=== PATIENT | female | born 1950 | race Two or more races ===

== ENCOUNTER 2024-05-16 06:56 | Day surgery (SDC) | payer OTHER ==
[2024-05-16] VITALS (9 sets, daily range): BP systolic 147–194; BP diastolic 71–109; PULSE 66–94; RESP 13–83; TEMP 97.7; O2SAT 96–99
[~2024-05-16] VITALS: Ht 157.5 cm; Wt 96.6 kg
[~2024-05-16 06:56] MED LIST: ASPI-543 PO; ATOR20TA50 PO; FOLI-119 PO; HYDR-4491 PO; HYDR25TA5 PO
[2024-05-16] MEDS ORDERED: ANGIOMAX 250 MG VIAL IV ONE (08:42)
[2024-05-16] MEDS ORDERED: HEPARIN SODIUM (PORCINE) 5000 UNITS/ML 1ML VIAL ONE (08:42)
[2024-05-16] MEDS ORDERED: MIDAZOLAM HCL 2MG/2ML 2ml VIAL (1mg/ml) ONE (08:43)
[2024-05-16] MEDS ORDERED: SODIUM CHL 0.9% 0 ML ONE (08:43)
[2024-05-16] MEDS ORDERED: fentaNYL CITRATE 100 MCG/2 ML VL ONE (08:43)
[2024-05-16] MEDS ORDERED: LIDOCAINE 2%HCL (LOCAL ANESTH.) INJ 20ML MDV ONE (08:43)
[2024-05-16] MEDS ORDERED: VERAPAMIL 2.5MG/ML INJ 2ML VIAL IV ONE (08:43)
[2024-05-16] MEDS ORDERED: IODIXANOL 320MG/ML 100ML BTL IV ONE (09:09)
[2024-05-16] MEDS: ONDANSETRON HCL 4 MG/2 ML VIAL ONE (09:40)
[2024-05-16] MEDS: METOCLOPRAMIDE HCL 5MG/ml INJ 2ml VIAL ONE (11:40)
== END 2024-05-16 13:01 | disposition home or self-care (01) ==
LOC: CATH 06:56
PROVIDERS: ATTEND Internal Medicine
DX: R94.39 Abnormal result of other cardiovascular function study (principal); I25.10 Atherosclerotic heart disease of native coronary artery without angina pectoris; R07.9 Chest pain, unspecified
CPT/HCPCS: 93005; 93458; C1894; J1644; J2250; J2405; J2765; J3010; J7030; Q9967; 99152

== ENCOUNTER 2025-01-04 19:55 | Inpatient (IN) | payer OTHER ==
[~2025-01-04] VITALS: Ht 157.5 cm; Wt 97.0 kg
--- NOTE | 2025-01-04 21:05 | ED.PDOC ---
SOB-HPI HPI Comments 74 y/o F, with PMHX of HTN presents to the ED for CC of shortness of breath. Patient states, that she is coming from urgent care where she was relayed to the ED for a further evaluation due to fluid being present in her right lung. Patient endorses, that she has had similar symptoms in the past in her left lung. Patient comments on, seeing PCP prior to urgent care visit; patient informed of possible costochondritis. Patient denies chest pain, nausea, v omiting, or diarrhea. No other symptoms or modifying factors present at this time. Chief Complaint: Shortness of Breath Time Seen by MD: 20:45 Reviewed notes: Nurses Notes, Medications, Allergies Information Source: Patient Mode of Arrival: Ambulatory Severity: Moderate Timing: Days Duration: Since onset Context: At Rest PE Risk Factors: None History of: None Prehospital treatment: None Modifying Factors: Nothing Past Medical History PAST MEDICAL HISTORY: DM, HTN Surgical History: Hysterectomy Surgical History (Other): left eye MANUAL QA TESTER History: Denies all MANUAL QA TESTER Hx Family History Family History: Unknown Social History Smoker: Non-Smoker Alcohol: Denies ETOH Use Drugs: Denies Drug Use Lives In: Home Constitutional: denies: chills, diaphoresis, fatigue, fever, malaise, sweats, weakness, others EENTM: denies: blurred vision, double vision, ear bleeding, ear discharge, ear drainage, ear pain, ear ringing, eye pain, eye redness, hearing loss, mouth pain, mouth swelling, nasal discharge, nose bleeding, nose congestion, nose pain, photophobia, tearing, throat pain, throat swelling, voice changes, others Respiratory: reports: shortness of breath; denies: cough, hemoptysis, orthop roslyn, SOB at rest, SOB with excertion, stridor, wheezing, others Cardiovascular: denies: chest pain, dizzy spells, diaphoresis, Dyspnea on exertion, edema, irregular heart beat, left arm pain, lightheadedness, palpitations, PND, syncope, others Gastrointestinal: denies: abdomen distended, abdominal pain, blood streaked bowels, constipated, diarrhea, dysphagia, difficulty swallowing, hematemesis, melena, nausea, poor appetite, poor fluid intake, rectal bleeding, rectal pain, vomiting, others Genitourinary: denies: abnormal vagina bleeding, burning, dyspareunia, dysuria, flank pain, frequency, hematuria, incontinence, pain, , vagina discharge, urgency, others Neurological: denies: dizziness, fainting, headache, left sided numbness, left sided weakness, numbness, paresthesia, pre-existing deficit, right sided numbness, right sided weakness, seizure, speech problems, tingling, tremors, weakness, others Musculoskeletal: denies: back pain, gout, joint pain, joint swelling, muscle pain, muscle stiffness, neck pain, others Integumetry: denies: bruises, change in color, change in hair/nails, dryness, laceration, lesions, lumps, rash, wounds, others Allergic/Immunocompromised: denies: Difficulty Healing, Frequent Infections, Hives, Itching, others Hematologic/Lymphatic: denies: anemia, blood clots, easy bleeding, easy bruising, swollen glands, others Endocrine: denies: excessive hunger, excessive sweating, excessive thirst, excessive urination, flushing, intolerance to cold, intolerance to heat, unexplained weight gain, unexplained weight loss, others Psychiatric: denies: anxiety, bipolar disorder, depression, hopeless, panic disorder, schizophrenia, sleepless, suicidal, others All Other Systems: Reviewed and Negative Physical Exam General Appearance: Moderate Distress HEENT: Normal ENT Inspection, Pharynx Normal, TMs Normal Neck: Full Range of Motion, Non-Tender, Normal, Normal Inspection Respiratory: Chest Non-Tender, Decreased Breath Sounds, Lungs Clear, No Accessory Muscle Use, Respiratory Distress Cardiovascular: No Edema, No JVD, No Murmur, No Gallop, Normal Peripheral Pulses, Regular Rate/Rhythm Breast Exam: Deferred Gastrointestinal: No Organomegaly, Non Tender, No Pulsatile Mass, Normal Bowel Sounds, Soft Genitalia: Deferred Pelvic: Deferred Rectal: Deferred Extremities: No calf tenderness, Normal capillary refill, Normal inspection, Normal range of motion, Non-tender, No pedal edema Musculoskeletal : Apperance: Normal Neurologic: Alert, 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 Was a procedure done?: No Differential Dx Differential Diagnosis: Asthma, Bronchitis, CHF, Pneumonia, Sinusitis, Pharyngitis, URI X-Ray, Labs, Meds, VS Vital Signs Date Time Temp Pulse Resp B/P (MAP) Pulse Ox O2 Delivery O2 Flow Rate FiO2 01/04/25 21:59 97 01/04/25 20:22 97 01/04/25 20:12 20 95 Room Air* 0 21 01/04/25 20:12 98.7 108 20 137/72 (93) 95 Lab Test 01/04/25 21:00 Range/Units White Blood Count 14.0 H 4.4-10.8 10^3/uL Red Blood Count 4.38 4.0-5.20 10^6/uL Hemoglobin 12.8 12.2-16.2 g/dL Hematocrit 38.6 36.0-46.0 % Mean Corpuscular Volume 88.1 80.0-100.0 fL Mean Corpuscular Hemoglobin 29.3 28.0-32.0 pg Mean Corpuscular Hemoglobin Concent 33.3 32.0-36.0 g/dL Red Cell Distribution Width 14.9 H 11.8-14.3 % Platelet Count 270 140-450 10^3/uL Mean Platelet Volume 7.9 6.9-10.8 fL Neutrophils (%) (Auto) 95.5 H 37.0-80.0 % Lymphocytes (%) (Auto) 3.6 L 10.0-50.0 % Monocytes (%) (Auto) 0.7 0.0-12.0 % Eosinophils (%) (Auto) 0.0 0.0-7.0 % Basophils (%) (Auto) 0.2 0.0-2.0 % Neutrophils # (Auto) 13.4 H 1.6-8.6 10 ^3/uL Lymphocytes # (Auto) 0.5 0.4-5.4 10 ^3/uL Monocytes # (Auto) 0.1 0-1.3 10 ^3/uL Eosinophils # (Auto) 0 0-0.8 10 ^3/uL Basophils # (Auto) 0 0-0.2 10 ^3/uL Nucleated Red Blood Cells 0.0 % Sodium Level 135 L 136-145 mmol/L Potassium Level 4.0 3.5-5.1 mmol/L Chloride Level 102 98-107 mmol/L Carbon Dioxide Level 24 20-31 mmol/L Anion Gap 9 5-15 Blood Urea Nitrogen 11 9-23 mg/dL Creatinine 1.00 0.550-1.02 mg/dL Glomerular Filtration Rate Calc 59 >90 mL/min BUN/Creatinine Ratio 11.0 10.0-20.0 Serum Glucose 159 H 74-106 mg/dL Calcium Level 9.7 8.7-10.4 mg/dL Troponin I High Sensitivity 3588 *H </=34 ng/L B-Type Natriuretic Peptide 139.86 0-100 pg/mL CXR : FINDINGS: Median sternotomy changes. Prominence of the cardiomediastinal silhouette. Central vascular redistribution and interstitial opacities. Blunting of the right costophrenic angle. No definite pneumothorax. IMPRESSION: Pulmonary vascular congestion/interstitial edema with right pleural effusion. ATED BY: JESSEE JOHNSON MD DICTATED DATE/TIME: 01/04/252125 SIGNED BY: JESSEE JOHNSON MD SIGNED DATE/TIME: 01/04/252125 CC: The patient was started on heparin IV piggyback We did review the EKG again and there was no sign of any ST changes Based on the findings on the chest x-ray the patient was started on Lasix 40 mg IV push The patient was troponin level came back elevated at 3588 The patient's [place] an [place] [address] The chemistry panel is within normal limits We are contacting the clam grader for consultation for possible non STEMI The patient will also be started on a heparin drip. We have discussed the findings with the patient and she is in agreement with the management. Images Reviewed?: Images reviewed and evaluated by me Time of 1ST Reevaluation: 20:25 Reevaluation 1ST: Unchanged Patient Education/Counseling: Diagnosis, Treatment, Prognosis Family Education/Counseling: No Family Present Departure 1 Departure Time of Disposition: 22:02 Impression: Primary Impression: Acute on chronic diastolic heart failure Additional Impression: Non-STEMI (non-ST elevated myocardial infarction) Disposition: ADMITTED INPATIENT Admit to: [facility] Condition: Fair Critical Care Note Critical Care Time?: Yes (45 min-critical care time only) Stability Stability form required: Yes Unstable for transfer: ICU, CCU, PCU, [facility] (Intensive VS monitoring), ED Physician Assesment (Clinical assesment) Heart Score Heart Score: Heart Score Response (Comments) Value History Moderate Suspicious 1 EKG Repolarization Disturb 1 Age >65 2 Risk Factors >3 or Hx ASHD 2 Troponin >3 x's Normal limit 2 Total 8 I personally scribed for NATTY GALE MD ([email or web address]) on 01/04/25 at 21:05. Electronically submitted by Karina Hilario ([email or web address]). I personally scribed for NATTY GALE MD ([email or web address]) on 01/04/25 at 21:48. Electronically submitted by Karina Hilario ([email or web address]). NATTY GALE MD Jan 04, 2025 21:05
[2025-01-04 21:12] LABS: Basophils # (auto) 0 10 ^3/uL (0-0.2); Basophils % (auto) 0.2 % (0.0-2.0); Eosinophils # (auto) 0 10 ^3/uL (0-0.8); Hematocrit 38.6 % (36.0-46.0); Hemoglobin 12.8 g/dL (12.2-16.2); Lymphocytes # (auto) 0.5 10 ^3/uL (0.4-5.4); Lymphocytes % (auto) 3.6 % (10.0-50.0); Mean Corpuscular Hemoglobin 29.3 pg (28.0-32.0); Mean Corpuscular Hgb Conc. 33.3 g/dL (32.0-36.0); Mean Corpuscular Volume 88.1 fL (80.0-100.0); Monocytes # (auto) 0.1 10 ^3/uL (0-1.3); Monocytes % (auto) 0.7 % (0.0-12.0); Neutrophils # (auto) 13.4 10 ^3/uL (1.6-8.6); Neutrophils % (auto) 95.5 % (37.0-80.0); Platelet Count (auto) 270 10^3/uL (140-450); Red Blood Cells 4.38 10^6/uL (4.0-5.20); Red Cell Distribution Width 14.9 % (11.8-14.3)
--- NOTE | 2025-01-04 21:29 | DVH ---
EXAMINATIONS: Chest x-ray 1 view CLINICAL HISTORY: sob COMPARISON: None FINDINGS: Median sternotomy changes. Prominence of the cardiomediastinal silhouette. Central vascular redistri bution and interstitial opacities. Blunting of the right costophrenic angle. No definite pneumothorax . IMPRESSION: Pulmonary vascular congestion/interstitial edema with right pleural effusion.
[2025-01-04 21:47] LABS: Chloride 102 mmol/L (98-107)
[2025-01-04 21:48] LABS: Anion Gap 9 (5-15); Carbon Dioxide 24 mmol/L (20-31)
[2025-01-04 21:49] LABS: Calcium 9.7 mg/dL (8.7-10.4)
[2025-01-04 21:50] LABS: Sodium 135 mmol/L (136-145)
[2025-01-04 21:53] LABS: Blood Urea Nitrogen 11 mg/dL (9-23)
[2025-01-04 21:55] LABS: Glucose 159 mg/dL (74-106)
[2025-01-04 22:10] VITALS: O2SAT 96
[2025-01-04] MEDS ORDERED: NITROGLYCERIN 0.4 MG SL TAB SL PRN (22:15)
[2025-01-04 22:34] LABS: INR 1.08 (0.9-1.15); Prothrombin Time 11.4 sec (9.3-11.8)
[2025-01-04 23:09] LABS: LDL Cholesterol 64 mg/dL (< 100); Triglycerides 53 mg/dL (< 150)
[2025-01-04 23:10] LABS: Cholesterol 137 mg/dL (< 200); HDL Cholesterol 56 mg/dL (40-59)
[2025-01-04] MEDS ORDERED: HEPARIN DRIP/D5W 100UNITS/ML 250 ML IV SCH (23:30)
[2025-01-04] MEDS: ASPirin 81 mg TAB PO ONE (23:40)
[2025-01-04] MEDS: ASPirin 81 mg TAB PO SCH (23:40)
[2025-01-05] VITALS (12 sets, daily range): BP systolic 119–136; BP diastolic 69–79; PULSE 68–111; RESP 14–20; TEMP 97.5–97.9; O2SAT 94–99
[2025-01-05] MEDS: FUROSEMIDE 40 MG/4 ML VIAL IV ONE (00:22)
[2025-01-05] MEDS: HEPARIN SODIUM (PORCINE) 5000 UNITS/ML 1ML VIAL IV ONE ×2 (00:26→09:29)
[2025-01-05] MEDS: HEPARIN DRIP/D5W 100UNITS/ML 250 ML IV SCH ×2 (00:46→09:00)
--- NOTE | 2025-01-05 01:44 | DVHHP2 ---
Admitting Diagnosis: NSTEMI History of Present Illness History Source: Patient Exam Limitations: No limitations HPI Mrs. Farzana Evans is a 74 year old female, with a past medical history of hypertension, DM, CABG x3 07/2024, hysterectomy who presents with a chief complaint of shortness of breath. Patient states, that she was sent from urgent care for a further evaluation due to fluid being present in her right lung. Patient endorses, that she has had similar symptoms in the past in her left lung. Patient comments on, seeing PCP prior to urgent care visit. Patient CXR resulted: Pulmonary vascular congestion/interstitial edema with right pleural effusion. Patient was found to have a troponin level of 3,588. Patient reports left shoulder pain radiating to left shoulder blade onset x 1 day. Patient denies chest pain, dyspnea, palpitations, dizziness, abdominal pain. Patient admitted for further evaluation and treatment. Home Meds Active Scripts Carvedilol (COREG) 3.125 Mg Tab, 3.125 MG OR BID for 120 Days, #240 TAB Prov:ARSLAN CARBAJAL MD 01/06/25 Clopidogrel Bisulfate (CLOPIDOGREL) 75 Mg Tab, 75 MG PO DAILY for 90 Days, #90 TAB Prov:ARSLAN CARBAJAL MD 01/06/25 Atorvastatin Calcium (ATORVASTATIN CALCIUM) 20 Mg Tab, 40 MG PO HS for 90 Days, #180 TAB Prov:ARSLAN CARBAJAL MD 01/06/25 Aspirin (Aspir-Low) 81 Mg Tab, 81 MG PO DAILY for PREVENTATIVE, #90 MG Prov:ARSLAN CARBAJAL MD 01/06/25 Reported Medications Hctz (Hydrochlorothiazide) 25 Mg Tab, 12.5 MG PO for HTN/EDEMA, TAB 05/13/24 Atorvastatin Calcium (ATORVASTATIN CALCIUM) 20 Mg Tab, 1 TAB PO DAILY for HIGH CHOLESTEROL, #30 TAB 5 Refills 05/13/24 Folic Acid (Folic Acid) 1 Mg Tab, 1 MG PO DAILY, MG 05/13/24 Hydroxychloroquine Sulfate (PLAQUENIL) 200 Mg Tab, 1 TAB PO BID for RHEUMATOID ARTHRITIS, #180 TAB 3 Refills 05/13/24 Past Medical History Cardiac: HTN Endocrine: NIDDM Past Surgical History: Hysterctomy H&P Exam Vital Signs Vital Signs Date Time Temp Pulse Resp B/P (MAP) Pulse Ox O2 Delivery O2 Flow Rate FiO2 01/05/25 00:55 98.6 120 19 113/65 (81) 95 98.6 01/04/25 20:12 Room Air* 0 21 Labs/Xrays Labs Test 01/05/25 00:15 01/04/25 22:28 01/04/25 21:00 Range/Units Troponin I High Sensitivity 4819 *H </=34 ng/L Lactic Acid Level 1.7 0.4-2.0 mmol/L Triglycerides Level 53 < 150 mg/dL Cholesterol Level 137 < 200 mg/dL LDL Cholesterol 64 < 100 mg/dL HDL Cholesterol 56 40-59 mg/dL White Blood Count 14.0 H 4.4-10.8 10^3/uL Red Blood Count 4.38 4.0-5.20 10^6/uL Hemoglobin 12.8 12.2-16.2 g/dL Hematocrit 38.6 36.0-46.0 % Mean Corpuscular Volume 88.1 80.0-100.0 fL Mean Corpuscular Hemoglobin 29.3 28.0-32.0 pg Mean Corpuscular Hemoglobin Concent 33.3 32.0-36.0 g/dL Red Cell Distribution Width 14.9 H 11.8-14.3 % Platelet Count 270 140-450 10^3/uL Mean Platelet Volume 7.9 6.9-10.8 fL Neutrophils (%) (Auto) 95.5 H 37.0-80.0 % Lymphocytes (%) (Auto) 3.6 L 10.0-50.0 % Monocytes (%) (Auto) 0.7 0.0-12.0 % Eosinophils (%) (Auto) 0.0 0.0-7.0 % Basophils (%) (Auto) 0.2 0.0-2.0 % Neutrophils # (Auto) 13.4 H 1.6-8.6 10 ^3/uL Lymphocytes # (Auto) 0.5 0.4-5.4 10 ^3/uL Monocytes # (Auto) 0.1 0-1.3 10 ^3/uL Eosinophils # (Auto) 0 0-0.8 10 ^3/uL Basophils # (Auto) 0 0-0.2 10 ^3/uL Nucleated Red Blood Cells 0.0 % Prothrombin Time 11.4 9.3-11.8 sec Prothrombin Time INR 1.08 0.9-1.15 Activated Partial Thromboplast Time 30.3 24.5-34.5 SEC Sodium Level 135 L 136-145 mmol/L Potassium Level 4.0 3.5-5.1 mmol/L Chloride Level 102 98-107 mmol/L Carbon Dioxide Level 24 20-31 mmol/L Anion Gap 9 5-15 Blood Urea Nitrogen 11 9-23 mg/dL Creatinine 1.00 0.550-1.02 mg/dL Glomerular Filtration Rate Calc 59 >90 mL/min BUN/Creatinine Ratio 11.0 10.0-20.0 Serum Glucose 159 H 74-106 mg/dL Calcium Level 9.7 8.7-10.4 mg/dL B-Type Natriuretic Peptide 139.86 0-100 pg/mL Assessment/Plan Problem List: (1) Non-STEMI (non-ST elevated myocardial infarction) (2) Acute on chronic diastolic heart failure Plan This is a 74 yo female with known history of hypertension, DM2, hysterectomy who presents with shortness of breath sent from for further evaluation of pu lmonary vascular congestion. Patient was found to have 1. NSTEMI 2. Pleural Effusion 3. CHF Plan Patient will be admitted to [facility] Cardiology consultation, 2D echocardiogram, serial troponin levels, ASA, Statin, IV diuresis Lasix Heparin drip per pharmacy ACS protocol, explained to patient Analgesic as needed Lipid Panel NPO after midnight Discussed all above with patient who verbalizes agreement and understanding of care plan. All questions were answered. Discussed assessment and care plan with supervising MD. Plan discussed with: Patient, Other Code Visit Code Visit Total Time (mins): 45 Additional Comments Additional Comments Additional Comments 74-year-old female with a known history of CAD status post three-vessel CABG presented to the hospital with shortness breath found to have 1. NSTEMI status post PCI to RCA with three stents 2. CAD status post three-vessel CABG 3. Leukocytosis likely reactive 4. Right-sided pleural effusion -pulmonary consultation for right thoracentesis, repeat labs, continue dual antiplatelet therapy as well as statin, add low-dose of beta rhiannon. KIT GAMBOA Jan 05, 2025 01:44 ARSLAN CARBAJAL MD Jan 06, 2025 16:27
[2025-01-05 04:37] LABS: Urine Bacteria MOD /hpf (None Seen); Urine Blood Negative /uL (Negative); Urine Clarity Clear (Clear); Urine Color Light-Yellow (Yellow); Urine Protein, UAD Negative (Negative); Urine Specific Gravity 1.006 (1.001-1.035); Urine Squamous Epithelial Cell FEW /hpf (<5); Urine Urobilinogen Normal (Negative); Urine WBC 3 /HPF (0-5); Urine pH 5.5 (5.0-9.0)
[2025-01-05 07:14] LABS: Basophils # (auto) 0 10 ^3/uL (0-0.2); Eosinophils # (auto) 0 10 ^3/uL (0-0.8); Hematocrit 35.3 % (36.0-46.0); Hemoglobin 12.4 g/dL (12.2-16.2); Lymphocytes # (auto) 0.8 10 ^3/uL (0.4-5.4); Mean Corpuscular Hemoglobin 30.6 pg (28.0-32.0); Mean Corpuscular Hgb Conc. 35.2 g/dL (32.0-36.0); Monocytes # (auto) 0.1 10 ^3/uL (0-1.3); Platelet Count (auto) 257 10^3/uL (140-450); Red Blood Cells 4.06 10^6/uL (4.0-5.20); White Blood Cell 10.9 10^3/uL (4.4-10.8)
[2025-01-05 07:15] LABS: INR 1.08 (0.9-1.15); Prothrombin Time 11.4 sec (9.3-11.8)
[2025-01-05 07:18] LABS: Anion Gap 11 (5-15); Carbon Dioxide 23 mmol/L (20-31); Chloride 104 mmol/L (98-107); Potassium 3.8 mmol/L (3.5-5.1); Sodium 138 mmol/L (136-145)
[2025-01-05 07:24] LABS: BUN/Creatinine Ratio 14.6 (10.0-20.0); Blood Urea Nitrogen 14 mg/dL (9-23); Glucose 129 mg/dL (74-106)
[2025-01-05 07:25] LABS: Magnesium 2.2 mg/dL (1.6-2.6)
--- NOTE | 2025-01-05 08:33 | ECG ---
[facility] Test Date: 2025-01-04 Test Time: 22:28:28 Pat Name: SOLITARIO GUTIERREZ Department: ED Room: 0275T Gender: F Support Technician: AMINA : 1950 Requested By: NATTY GALE Order Number: [id number] Reading MD: Emile Layc Measurements Intervals [place] Rate: 86 P: 50 HI: 149 QRS: 52 QRSD: 92 T: 120 QT: 421 QTc: 504 Interpretive Statements Sinus rhythm Probable left atrial enlargement Abnormal inferior Q waves Abnrm T, consider ischemia, anterolateral lds Prolonged QT interval Electronically Signed On 01-07-2025 19:04:57 PDT by Emile Lacy Please click the below link to view image of tracing.
[2025-01-05] MEDS: IODIXANOL 320MG/ML 100ML BTL IV ONE ×3 (10:46→12:51)
[2025-01-05] MEDS: MIDAZOLAM HCL 2MG/2ML 2ml VIAL (1mg/ml) ONE (11:25)
[2025-01-05] MEDS: LIDOCAINE 2%HCL (LOCAL ANESTH.) INJ 20ML MDV ONE (11:25)
[2025-01-05] MEDS: fentaNYL CITRATE 100 MCG/2 ML VL ONE (11:25)
--- NOTE | 2025-01-05 11:34 | DVHINCON2 ---
Date Seen: Jan 05, 2025 Referring Physician MD Omar Reason for Consultation NSTEMI History of Present Illness This is a 74-year-old female patient who presents to emergency room with chief complaint of left shoulder and back pain. The patient initially went to see her primary care physician with complaints of left shoulder and left back pain. She reports that she was sent to urgent care from there for further evaluation. She reports that a chest x-ray was done and she was told that she had "fluid in her lungs" and was told to come to the emergency room. Upon emergency room arrival, a twelve lead electrocardiogram reveals normal sinus rhythm with nonspecific ST segment changes to anteroseptal leads. Initial troponin level of 3588ng/L with significant up-trend and latest value at 5565ng/L. At the time of assessment, the patient states she began having chest pressure. She describes it as unprovoked, intermittent, pressure-like in nature, substernal, and nonradiating. She denies any associated symptoms at this time. Significant past medical history includes severe coronary artery disease status post triple-vessel CABG in 07/2024, hypertension, dyslipidemia, and obesity. The patient reports that she sees mine wirer in the outpatient setting. Past Medical History Past medical history reviewed. No other significant than mentioned above. Past Surgical History Triple-vessel bypass CABG 07/2024 Hysterectomy Family History Family history reviewed. Social History Denies the use of tobacco, alcohol or illicit drugs. Allergies: Coded Allergies: Morphine (Verified Allergy, Unknown, UNKNOWN, 05/13/24) Uncoded Allergies: NONE (Allergy, Unknown, 05/13/24) Home Meds Reported Medications Aspirin (Aspir-Low) 81 Mg Tab, 81 MG PO DAILY for PREVENTATIVE, MG 05/13/24 Hctz (Hydrochlorothiazide) 25 Mg Tab, 12.5 MG PO for HTN/EDEMA, TAB 05/13/24 Atorvastatin Calcium (ATORVASTATIN CALCIUM) 20 Mg Tab, 1 TAB PO DAILY for HIGH CHOLESTEROL, #30 TAB 5 Refills 05/13/24 Folic Acid (Folic Acid) 1 Mg Tab, 1 MG PO DAILY, MG 05/13/24 Hydroxychloroquine Sulfate (PLAQUENIL) 200 Mg Tab, 1 TAB PO BID for RHEUMATOID ARTHRITIS, #180 TAB 3 Refills 05/13/24 Home Meds Home medications reviewed. Current Medications Current Medications Medications (Trade) Dose Ordered Sig/Jamal Route PRN Reason Start Time Stop Time Status Last Admin Heparin Sodium/ Dextrose 250 ml @ 110 mls/hr Q2H17M IV 01/04/25 23:30 01/05/25 00:38 DC Nitroglycerin (Ntrostat Sublingual) 0.4 mg Q5MINP PRN SL FOR CHEST PAIN 01/04/25 22:15 Ondansetron HCl (Zofran) 4 mg Q6HPRN PRN IV NAUSEA / VOMITING 01/04/25 22:15 Aspirin 81 mg DAILY PO 01/04/25 22:15 01/04/25 23:40 Atorvastatin Calcium (Lipitor) 40 mg HS PO 01/05/25 22:00 Acetaminophen/ Hydrocodone Bitart ([place] 5/325MG Tab) 1 tab Q6HPRN PRN PO PAIN SCALE 1 THRU 6 01/04/25 22:15 Acetaminophen (Tylenol Tablet) 650 mg Q6HPRN PRN PO PAIN SCALE 1-3 OR TEMP>100.4 01/04/25 22:15 Pantoprazole Sodium (Protonix) 40 mg DAILY IV 01/05/25 10:00 Furosemide (Lasix Injection) 40 mg BID IV 01/05/25 10:00 Heparin Sodium/ Dextrose 250 ml @ 10 mls/hr Q24H IV 01/05/25 00:45 01/05/25 08:50 DC 01/05/25 00:46 Heparin Sodium/ Dextrose 250 ml @ 13 mls/hr [id number] IV 01/05/25 09:00 01/05/25 09:00 Review of Systems Constitutional: No symptom reported Ears, Nose, & Throat: No symptom reported Eyes: No symptom reported Neurological: No symptoms reported Pulmonary/Respiratory: No symptoms reported Cardiovascular: Chest pressure Gastrointestinal: No symptom reported Genitourinary: No symptom reported Musculoskeletal: Left shoulder and left upper back pain Skin: No symptom reported Psychiatric: No symptom reported Endocrine: No symptom reported Hematologic/Lymphatic: No symptom reported Vital Signs Vital Signs Date Time Temp Pulse Resp B/P (MAP) Pulse Ox O2 Delivery O2 Flow Rate FiO2 01/05/25 11:00 97.9 127 26 141/74 (96) 98 97.9 01/05/25 04:00 Room Air* 0 21 Physical Exam General Appearance: Cooperative. Well-developed. Well-nourished. No acute distress. Pulmonary/Respiratory: Diminished bilateral lower lobes Cardiovascular/Chest: Regular rate and rhythm. Peripheral Pulses: 2+ Radial (R). 2+ Radial (L). 2+ Pedal (R). 2+ Pedal (L) Abdominal Exam: Normal bowel sounds. Ankle Exam: Negative ankle edema Lower extremities: Negative lower extremity edema Neuro/Mental Status: A/OX4, coherent. Thoughts/Psych: Normal thought pattern. Appropriate mood and affect. Good judgment and insight. Appearance: No acute distress. Skin Exam: Normal inspection. Normal color. Warm and dry. Labs/Diagnostic Data Labs Test 01/05/25 06:10 01/05/25 04:07 01/04/25 22:28 01/04/25 21:00 Range/Units White Blood Count 10.9 H 4.4-10.8 10^3/uL Red Blood Count 4.06 4.0-5.20 10^6/uL Hemoglobin 12.4 12.2-16.2 g/dL Hematocrit 35.3 L 36.0-46.0 % Mean Corpuscular Volume 87.0 80.0-100.0 fL Mean Corpuscular Hemoglobin 30.6 28.0-32.0 pg Mean Corpuscular Hemoglobin Concent 35.2 32.0-36.0 g/dL Red Cell Distribution Width 15.0 H 11.8-14.3 % Platelet Count 257 140-450 10^3/uL Mean Platelet Volume 8.3 6.9-10.8 fL Neutrophils (%) (Auto) 92.0 H 37.0-80.0 % Lymphocytes (%) (Auto) 7.0 L 10.0-50.0 % Monocytes (%) (Auto) 1.0 0.0-12.0 % Eosinophils (%) (Auto) 0.0 0.0-7.0 % Basophils (%) (Auto) 0.0 0.0-2.0 % Neutrophils # (Auto) 10.0 H 1.6-8.6 10 ^3/uL Lymphocytes # (Auto) 0.8 0.4-5.4 10 ^3/uL Monocytes # (Auto) 0.1 0-1.3 10 ^3/uL Eosinophils # (Auto) 0 0-0.8 10 ^3/uL Basophils # (Auto) 0 0-0.2 10 ^3/uL Nucleated Red Blood Cells 0.0 % Prothrombin Time 11.4 9.3-11.8 sec Prothrombin Time INR 1.08 0.9-1.15 Activated Partial Thromboplast Time 28.0 24.5-34.5 SEC Sodium Level 138 136-145 mmol/L Potassium Level 3.8 3.5-5.1 mmol/L Chloride Level 104 98-107 mmol/L Carbon Dioxide Level 23 20-31 mmol/L Anion Gap 11 5-15 Blood Urea Nitrogen 14 9-23 mg/dL Creatinine 0.96 0.550-1.02 mg/dL Glomerular Filtration Rate Calc 62 >90 mL/min BUN/Creatinine Ratio 14.6 10.0-20.0 Serum Glucose 129 H 74-106 mg/dL Calcium Level 10.0 8.7-10.4 mg/dL Magnesium Level 2.2 1.6-2.6 mg/dL Troponin I High Sensitivity 5565 *H </=34 ng/L Urine Color Light-yellow Yellow Urine Clarity Clear Clear Urine pH 5.5 5.0-9.0 Urine Specific [place] 1.006 1.001-1.035 Urine Protein Negative Negative Urine Ketones Negative Negative Urine Blood Negative Negative /uL Urine Nitrite Negative Negative Urine Bilirubin Negative Negative Urine Urobilinogen Normal Negative mg/dL Urine Leukocyte Esterase Negative Negative /uL Urine RBC 1 0 - 4 /hpf Urine Microscopic WBC 3 0-5 /HPF Urine Squamous Epithelial Cells Few <5 /hpf Urine Bacteria Mod H None Seen /hpf Urine Glucose Normal Normal mg/dL Lactic Acid Level 1.7 0.4-2.0 mmol/L Triglycerides Level 53 < 150 mg/dL Cholesterol Level 137 < 200 mg/dL LDL Cholesterol 64 < 100 mg/dL HDL Cholesterol 56 40-59 mg/dL B-Type Natriuretic Peptide 139.86 0-100 pg/mL Assessment NSTEMI, rule out progressive coronary artery disease Severe coronary artery disease status post triple-vessel CABG (on ASA) Rule out structural heart disease Hypertension Dyslipidemia Obesity Plan/Recommendation We will continue with the following plan/recommendations (Dr. Lacy): * Transthoracic echocardiogram to evaluate cardiac function * Chest pain protocol * ARTURO score: 6 points (high) * HEART score: 9 points (high score) * Continue heparin drip per pharmacy protocol * Single antiplatelet therapy and lipid-lowering agent * Close Cardiac surveillance * Coronary angiogram Case discussed with . Given the patient's clinical presentation, elevated troponin level, and twelve lead electrocardiogram changes, we will recommend for the patient undergo a coronary angiogram with left heart catheterization. The procedure was discussed with the patient in full detail including risks and benefits. Risks include but are not limited to bleeding, contrast-induced nephropathy, stroke, and even . The patient understands and is agreeable to undergo the procedure. We will schedule the patient at soonest availability on 01/05/2025. Critical care time spent: 44 minutes This medical document was created using an electronic medical record system with voice recognition software and computerized dictation system. Although this document has been carefully reviewed, there might still be some phonetic and typographical errors. Occasional wrong-word or ``sound-alike substitutions may have occurred due to the inherent limitations of voice recognition software. These areas are purely typographical due to imperfections of the software programs and do not reflect any compromise in the patient's medical care. Please read the chart carefully and recognize, using context, where these substitutions have occurred. Plan discussed with: Patient NYHA Physical activity limitations: NA Date of Service: Jan 05, 2025 Billing Provider: OANH LACY Sr., MD Cardiology Common Codes: NOT BILLABLE KELLEE HAYDEN Jan 05, 2025 11:34
[2025-01-05] MEDS: ONDANSETRON HCL 4 MG/2 ML VIAL ONE ×2 (11:40→12:38)
[2025-01-05] MEDS: SODIUM CHL 0.9% 50 ML ONE (12:10)
[2025-01-05] MEDS: ANGIOMAX 250 MG VIAL IV ONE (12:10)
[2025-01-05] MEDS: DOPamine 1600MCG/ML D5W 250 ML IV ONE (12:17)
[2025-01-05] MEDS: PHENYLEPHRINE HCL 10 MG/ML VL ONE (12:25)
[2025-01-05] MEDS: EPINEPHrine HCL 1 MG/10 ML SYRG ONE (12:46)
[2025-01-05] MEDS: ATROPINE SULF 1 MG/10ml SYR ONE (12:46)
[2025-01-05] MEDS: CLOPIDOGREL BISULFATE 75 MG TAB ONE (13:00)
[2025-01-05] MEDS: ASPirin 325 MG TAB ONE (13:00)
--- NOTE | 2025-01-05 13:35 | ECG ---
[facility] Test Date: 2025-01-04 Test Time: 20:22:35 Pat Name: SOLITARIO GUTIERREZ Department: ER Room: [facility]5T Gender: F [employer] Assistant: WAGNER : 1950 Requested By: NATTY GALE Order Number: [id number] Reading MD: Emile Lacy Measurements Intervals [place] Rate: 97 P: 62 IA: 140 QRS: 74 QRSD: 97 T: 121 QT: 370 QTc: 470 Interpretive Statements Sinus rhythm Low voltage, precordial leads Nonspecific T abnrm, anterolateral leads Electronically Signed On 01-07-2025 19:03:38 PDT by Emile Lacy Please click the below link to view image of tracing.
[2025-01-05] MEDS: ONDANSETRON HCL 4 MG/2 ML VIAL IV PRN (14:44)
[2025-01-05] MEDS ORDERED: DOPamine 1600MCG/ML D5W 250 ML IV SCH (15:00)
--- NOTE | 2025-01-05 17:24 | DVHOP2 ---
Operative Report - 2 Report Details Date: 01/05/25 Preop Diagnosis: CLINICAL PROFILE: 74-year-old lady with a history of underlying coronary artery disease status post three-vessel bypass several months ago. Developed progressive chest pain and shortness of breath. Cardiac evaluation was requested for cardiac catheterization. Patient had abnormal troponins with cardiomyopathy. Recurrent chest pain. Probable recurrence of CAD and/or pro gression noted as a possibility. Patient was taken to the cardiac catheterization laboratory. Postop Diagnosis: Diminished ejection fraction. EF of about 35%. Stenotic graft to the marginal. RCA stenosis. Patent saphenous graft to the PDA. Patent CARMEN to the LAD. Surgeon: Emile Lacy MD Anesthesiologist: Conscious sedation Anesthesia: Mac, Local ( Fentanyl and Versed were instituted. I personally monitored the patient throughout the procedure.) Implant: Medtronic drug-eluting stents Consent: The patient was informed of the risks and benefits of the procedure. These include but are not limited to complications of anesthesia, postoperative infection, incomplete relief of symptoms, recurrence of symptoms, damage to blood vessels, nerves and tendons, deep venous thrombosis, pulmonary embolism and possible need for repeat surgery in the future. Complications: No complications Estimated Blood Loss: 5 cc Findings: CAD with occluded PDA. Occluded LAD. Patent left internal mammary artery to the LAD. Stenotic saphenous graft to the marginal. Patent saphenous graft to the PDA. RCA stenosis. Decreased ejection fraction. Elevated left ventricular end-diastolic pressures. Indications for Surgery: Chest pain. Non-STEMI. Name of Procedure Performed Bilateral cine coronary angiography. Left ventriculography. Visualization of saphenous venous grafts and left internal mammary artery. Fractional flow reserve evaluation of the RCA. PTCA and stenting of the saphenous graft to the marginal. PTCA and stenting of the RCA. Procedure Details Procedure Details: Prior local anesthesia with 2% lidocaine to the right groin and full informed consent obtained the patient was prepped and draped in usual fashion followed by placement of a six [place] sheath into the femoral artery through which six [place] Steven catheters were used to cannulate both right and left coronary ostia and a six [place] pigtail catheter was used for ventriculography. Hemodynamics: Aortic blood pressure was 110/70. End-diastolic pressure was 20. There was no gradient across the aortic valve on pullback. Coronary anatomy. The RCA is a large vessel it has a proximal 80% stenosis. The mid and distal segments are free of significant disease however the posterolateral branches are rather small. Diffusely diseased. The PDA is 100% occluded proximally. Left main is large and normal. Left anterior descending is diffusely disease and it is occluded proximally. It gives off a large septal customs opener verifier packer. The circumflex is a large vessel it is normal in its proximal and mid section however the 1st marginal branch is occluded. Saphenous graft to the PDA is patent with minimal flow into the proximal PDA. There is no flow into the posterolateral and/or RCA. Good distal flow from the anastomosis. The saphenous venous graft to the marginal is patent however there is a long narrowing in the proximal saphenous graft that produces dampening of the pressure waveforms when cannulated with a catheter. The distal anastomotic site has a 99% subtotal stenosis. Left internal mammary artery to the LAD is patent with good flow from the anastomosis forward. Minimal retrograde filling of the proximal LAD. Ventriculography in the SAMUEL projection shows an EF of about 35%. Fractional flow reserve evaluation was performed of the RCA. FFR revealed a value of 0.75 Indicating severe stenosis of the proximal RCA. We obtained a SA L1 guide and placed it into the origin of the saphenous graft. We then dilated with a 2 mm balloon at the anastomotic site distally into the marginal. There was notable improvement. We then addressed the proximal saphenous graft with a two 5 x 22 mm stent. This improved the flow however the distal segment was hazy. We opted to stent with a 225 x 12 at approximately eight atmospheres. There was excellent antegrade flow without thrombus formation or dissection. We then addressed the RCA. We placed the ID guide into the RCA ostium and placed a Specter wire distally followed by pre dilating with a two five balloon. We then placed a 3-0 by 8 mm Medtronic ivan drug-eluting stent. This was deployed at approximately 10 atmospheres. We then retracted the balloon and expanded to approximately 15 atmospheres. There was notable improvement of flow. Impression: Successful PTCA and stenting of the RCA and saphenous graft to the marginal. Patent saphenous grafts to the marginal and to the PDA. Stenosis of the RCA as mentioned. Patent left internal mammary artery to the LAD. Decreased left ventricular ejection fraction. Elevated left ventricular end- diastolic pressure at rest. Recommendations continue with medical therapy. Dual antiplatelet therapy afterload reduction. Entresto to be instituted. Condition Guarded Disposition at Hospital Date of Service: Jan 05, 2025 Billing Provider: EMILE LACY Sr., MD Cardiology Common Codes: [id number] INP/OBS CARE (High) Cardiology Procedure Codes: [id number] VESSEL W/I VASC FAM, 52398 -PTCA W/STENT PLACEMENT, 11512-KJTV ADD CORONARY BRANCH, 41332-TOPY FOR STEMI W/STENT, 57556-NRVJ ADD COR ART/BRNCH/GRFT, 65482-VYAC HEART CATH W/INTRA INJ, 66374-R/L HEART CATH W/BYPASS GFT ( Visualization of saphenous venous grafts and left internal mammary artery. PTCA and stenting of the RCA and saphenous graft to t he marginal. Fractional flow reserve evaluation of the RCA. Ultrasound and fluoroscopic guidance to obtain access to the right femoral artery.) EMILE LACY Sr., MD Jan 05, 2025 17:24
--- NOTE | 2025-01-05 17:44 | DVHSR ---
APPROVED REPORT EXAM: Two-dimensional and M-mode echocardiogram with Doppler and color Doppler. Blood Pressure: 108/47 mmHg INDICATION NSTEMI, CHF RISK FACTORS Height: 62, Weight: 212 DIMENSIONS LVDd4.6 (3.8-5.7cm)LA (2D)3.8 (1.9-4.0cm)Aortic Root3.4 (2.0-3.7cm) LVDs3.1 (2.5-4.0cm)LA (MM) (1.9-4.0cm)Aortic Cusp Exc1.7 (1.5-2.0cm) EF (%) 62.0 (55-70%)Rt. Atrium (1.9-4.0cm)Asc. Aorta cm IVSd1.2 (0.7-1.1cm)RV (D) (1.8-2.4cm) PWd1.2 (0.7-1.1cm) Mitral Valve MitralMitral Stenosis E wave0.71m/sMV Mean GR.mmHg A wave1.12m/sMV Peak GR.102mmHg E/A ratio0.62D MVAcm2 DECEL [id number] 1/2 Nsrq91td IVRTmsDop MVA4.26cm2 Aortic Valve Aortic ValveAortic Stenosis V11.02m/Chelsea Mean GR.3mmHg V21.10m/[place]sea Peak GR.5mmHg LVOT Diameter1.7 (1.8-2.4cm)Doppler AVA2.10cm2 Pulmonic Valve V20.79m/s Tricuspid Valve TR Velocity2.47m/s [id number] Other Information Technically limited study due to body habitus and patient position. Conclusion Technically good study. Sinus rhythm. Left atrial enlargement concentric LVH. Mild mitral annular calcification. Mild aortic sclerosis. Left ventricular function is diminished. EF is about 35% with global hypokinesis. Normal right vent ricular function. Mild TR. No pericardial effusion masses or vegetations.
[2025-01-05] MEDS: PANTOPRAZOLE 40 MG/10 ML VIAL INJ IV SCH (20:49)
[2025-01-05] MEDS: ACETAMINOPHEN 325 MG TAB PO PRN (20:51)
[2025-01-05] MEDS: ATORVASTATIN 20 MG TAB PO SCH (21:00)
[2025-01-05] MEDS: FUROSEMIDE 40 MG/4 ML VIAL IV SCH (21:00)
[2025-01-06] VITALS (8 sets, daily range): BP systolic 112–150; BP diastolic 63–85; PULSE 84–110; RESP 18–20; TEMP 97.5–99; O2SAT 93–99
[2025-01-06] MEDS: HYDROcodone-ACET 5/325MG TAB PO PRN (05:34)
[2025-01-06 09:16] LABS: Chloride 104 mmol/L (98-107); Sodium 138 mmol/L (136-145)
[2025-01-06 09:17] LABS: Anion Gap 9 (5-15); Carbon Dioxide 25 mmol/L (20-31)
[2025-01-06 09:18] LABS: Calcium 9.5 mg/dL (8.7-10.4)
[2025-01-06 09:33] LABS: BUN/Creatinine Ratio 17.5 (10.0-20.0)
[2025-01-06 09:49] LABS: Glucose 107 mg/dL (74-106); Potassium 4.6 mmol/L (3.5-5.1)
[2025-01-06 09:50] LABS: Blood Urea Nitrogen 17 mg/dL (9-23)
[2025-01-06] MEDS: CLOPIDOGREL BISULFATE 75 MG TAB PO SCH (10:00)
[2025-01-06] MEDS ORDERED: IOHEXOL 350 MG/ML 100ML IJ ONE (10:35)
[2025-01-06 11:34] LABS: Hematocrit 38.6 % (36.0-46.0); Hemoglobin 12.5 g/dL (12.2-16.2); Mean Corpuscular Hemoglobin 28.9 pg (28.0-32.0); Mean Corpuscular Hgb Conc. 32.5 g/dL (32.0-36.0); Mean Corpuscular Volume 89.1 fL (80.0-100.0); Platelet Count (auto) 268 10^3/uL (140-450); Red Blood Cells 4.33 10^6/uL (4.0-5.20); Red Cell Distribution Width 15.2 % (11.8-14.3)
[2025-01-06 11:49] LABS: Band Neutrophils % (manual) 0; Basophils % (manual) 0 (0.0-2.0); Blast Cells 0; Eosinophils % (manual) 0 (0-7); Metamyelocytes % 0; Myelocytes % 0; Promyelocytes % 0; Reactive Lymphocytes 0
[2025-01-06 12:22] LABS: Lymphocytes % (manual) 5 (10.0-50.0); Monocytes % (manual) 4 (0-12); Platelet Estimate Adequate
--- NOTE | 2025-01-06 12:28 | DVH ---
CTA CHEST INDICATION: back and should pain TECHNIQUE: Multidetector CTA of the chest was performed of the chest with 100 cc of intravenous contr ast. PULMONARY ANGIOGRAPHY PROTOCOL was utilized using a bolus-tracking technique centered on the [place] n pulmonary artery. Axial, coronal and sagittal multiplanar and MIP reformats were performed. Radiation Dose Information: CT Dose: CTDI volume is 25 mGy. Dose-length product is 964 mGy*cm The dose indicators for CT are the volume Computed Tomography (CT) Dose Index (CTDIvol) and the Dose Length Product (DLP), and are measured in units of mGy and mGy-cm, respectively. These indicators are not patient dose, but values generated from the CT scanner acquisition factors. The report includes radiation exposure data for exposures received during this examination. Comparison: None Findings: Pulmonary artery: There is no evidence of a pulmonary arterial filling defect to suggest pulmonary e mbolism. The main pulmonary artery demonstrates normal caliber. Lungs/Pleura: There is a moderate size right pleural effusion which tracks into the minor and major fissure. There is associated atelectasis in the right lower lobe. There is scarring versus atelectasi s in the lingula and left lower lobe. There is no focal lung consolidation. Is no evidence of pneumot horax. The central airways are clear. Heart/Vascular Structures: Postsurgical changes related to CABG. There is cardiomegaly. There is no pericardial effusion. The thoracic aorta demonstrates normal caliber. Lymph Nodes: There is no evidence of thoracic lymphadenopathy. Musculoskeletal: No acute osseous abnormality. Upper abdomen: There is a small hiatal hernia. Remaining visualized upper abdominal structures appear within normal limits. IMPRESSION: 1. There is no evidence of a pulmonary arterial filling defect to suggest pulmonary embolism. 2. Moderate size right pleural effusion with associated atelectasis in the right lower lobe. There is scarring versus atelectasis in the lingula and left lower lobe.3. Cardiomegaly. HS:Y
[2025-01-06] MEDS ORDERED: ATOR20TA50 PO (16:22)
[2025-01-06] MEDS ORDERED: CARV-214 OR (16:22)
[2025-01-06] MEDS ORDERED: CLOP75TA70 PO (16:22)
[2025-01-06] MEDS ORDERED: ASPI-543 PO (16:22)
--- NOTE | 2025-01-06 16:29 | DVHPN2 ---
Subjective Overnight events noted. Patient does have right-sided pleural effusion. Patient is status post PCI to RCA with three stents. Reviewed: Care Plan Changes from previous H/P or p: No Changes Objective Vitals Vital Signs Date Time Temp Pulse Resp B/P (MAP) Pulse Ox O2 Delivery O2 Flow Rate FiO2 01/06/25 13:00 99.0 108 18 142/82 (102) 93 99.0 01/05/25 19:56 Nasal Cannula* 2 28 Intake/Output Intake and Output 01/06/25 07:00 Intake Total 450 ml Balance 450 ml Intake Oral 450 ml # Voids 3 Exam HEENT pupils are reactive Neck is supple CV is S1-S2 regular rate and rhythm Respiratory diminished breath sounds right lung base GI positive bowel sounds Extremity no edema SAP SECURITY ARCHITECT no motor deficit Medications Current Medications Medications Dose Ordered Sig/Jamal Route Start Time Stop Time Status Last Admin Dose Admin Nitroglycerin 0.4 mg Q5MINP PRN SL 01/04/25 22:15 Ondansetron HCl 4 mg Q6HPRN PRN IV 01/04/25 22:15 01/06/25 10:09 4 MG Aspirin 81 mg DAILY PO 01/04/25 22:15 01/04/25 23:40 81 MG Atorvastatin Calcium 40 mg HS PO 01/05/25 22:00 01/05/25 21:00 40 MG Acetaminophen/ Hydrocodone Bitart 1 tab Q6HPRN PRN PO 01/04/25 22:15 01/06/25 05:34 1 TAB Acetaminophen 650 mg Q6HPRN PRN PO 01/04/25 22:15 01/05/25 20:51 650 MG Pantoprazole Sodium 40 mg DAILY IV 01/05/25 10:00 01/06/25 10:09 40 MG Furosemide 40 mg BID IV 01/05/25 10:00 01/06/25 10:09 40 MG Clopidogrel Bisulfate 75 mg DAILY PO 01/06/25 10:00 Laboratory Results Laboratory Tests 01/06/25 08:57 01/06/25 10:45 Chemistry Test 01/06/25 08:57 Calcium Level 9.5 mg/dL (8.7-10.4) Urinalysis Test 01/05/25 04:07 Urine Color Light-yellow (Yellow) Urine Clarity Clear (Clear) Urine pH 5.5 (5.0-9.0) Urine Specific [place] 1.006 (1.001-1.035) Urine Protein Negative (Negative) Urine Ketones Negative (Negative) Urine Blood Negative /uL (Negative) Urine Nitrite Negative (Negative) Urine Bilirubin Negative (Negative) Urine Urobilinogen Normal mg/dL (Negative) Urine Leukocyte Esterase Negative /uL (Negative) Urine RBC 1 /hpf (0 - 4) Urine Microscopic WBC 3 /HPF (0-5) Urine Squamous Epithelial Cells Few /hpf (<5) Urine Bacteria Mod /hpf (None Seen) H Urine Glucose Normal mg/dL (Normal) Assessment/Plan Assessment/Plan 74-year-old female with a known history of CAD status post three-vessel CABG presented to the hospital with shortness breath found to have 1. NSTEMI status post PCI to RCA with three stents 2. CAD status post three-vessel CABG 3. Leukocytosis likely reactive 4. Right-sided pleural effusion -continue dual antiplatelet therapy, continue statin, add Entresto, add low dose of beta rhiannon -pulmonary consultation for right-sided thoracentesis Plan discussed with: Patient, Spouse My Orders Orders - ARSLAN CARBAJAL MD Procedure Category Date Status Time *Consult CONS 01/06/25 Transmitted / 16:20 Date of Service: Jan 06, 2025 Billing Provider: ARSLAN CARBAJAL MD Common Visit Codes: NOT BILLABLE ARSLAN CARBAJAL MD Jan 06, 2025 16:28
--- NOTE | 2025-01-06 17:24 | DVHPN2 ---
Consult Progress Note Subjective Other Systems: Patient complaining of nausea, and upper back pain at time of assessment. Patient in sinus tachycardia at time of assessment Objective vital signs Vital Sign Date Time Temp Pulse Resp B/P (MAP) Pulse Ox O2 Delivery O2 Flow Rate FiO2 01/06/25 16:40 98.0 104 18 139/79 (99) 98 98.0 01/06/25 07:30 Nasal Cannula* 2 28 Total Intake and Output 01/05/25 01/05/25 01/06/25 15:00 23:00 07:00 Intake Total 450 ml Balance 450 ml medications Current Medications Medications Dose Ordered Sig/Jamal Route Start Time Stop Time Status Last Admin Dose Admin Nitroglycerin 0.4 mg Q5MINP PRN SL 01/04/25 22:15 Ondansetron HCl 4 mg Q6HPRN PRN IV 01/04/25 22:15 01/06/25 10:09 4 MG Aspirin 81 mg DAILY PO 01/04/25 22:15 01/04/25 23:40 81 MG Atorvastatin Calcium 40 mg HS PO 01/05/25 22:00 01/05/25 21:00 40 MG Acetaminophen/ Hydrocodone Bitart 1 tab Q6HPRN PRN PO 01/04/25 22:15 01/06/25 05:34 1 TAB Acetaminophen 650 mg Q6HPRN PRN PO 01/04/25 22:15 01/05/25 20:51 650 MG Pantoprazole Sodium 40 mg DAILY IV 01/05/25 10:00 01/06/25 10:09 40 MG Furosemide 40 mg BID IV 01/05/25 10:00 01/06/25 10:09 40 MG Clopidogrel Bisulfate 75 mg DAILY PO 01/06/25 10:00 Carvedilol 3.125 mg Q12HR PO 01/06/25 22:00 Sacubitril/ Valsartan 1 tab BID PO 01/06/25 22:00 Examination: GENERAL:Normal, LUNGS:Normal, CVS:Normal, NEURO:Normal laboratory and microbiology Laboratory Tests 01/06/25 10:45 01/06/25 08:57 Test 01/06/25 08:57 Range/Units Serum Glucose 107 H 74-106 mg/dL Problem List/Assessment/Plan Problem List/Assessment/Plan NSTEMI, status post PTCA x3 CLARA Severe coronary artery disease status post triple-vessel CABG (on ASA) Rule out structural heart disease Hypertension Dyslipidemia Obesity Plan/Recommendation (Dr. Lacy): Case discussed with Dr. Lacy. A transthoracic echocardiogram revealed an EF of 35% with global hypokinesis. The patient underwent a coronary angiogram with left heart catheterization on 01/05/2025 in which successful PTCA and stenting x 3 CLARA. We will recommend to continue with guideline directed medical therapy for CHF, dual antiplatelet therapy, and lipid-lowering agent. Consider MRA (spironolactone) with stable potassium. At the time of initial assessment the patient was complaining of nausea as well as mid upper back pain. A twelve lead electrocardiogram was done and revealed sinus tachycardia with Q-waves in inferior leads without any significant ST segment changes. A STAT CT angio was ordered to rule out dissection. Report did not mention anything about dissection, spoke with on-site radiologist Dr. Peralta who looked at images and confirmed that there is no dissection. Continue with medical management. Thank you for allowing us to care for this patient. Please call with any questions or concerns. This medical document was created using an electronic medical record system with voice recognition software and computerized dictation system. Although this document has been carefully reviewed, there might still be some phonetic and typographical errors. Occasional wrong-word or ``sound-alike substitutions may have occurred due to the inherent limitations of voice recognition software. These areas are purely typographical due to imperfections of the software programs and do not reflect any compromise in the patient's medical care. Please read the chart carefully and recognize, using context, where these substitutions have occurred. Plan discussed with: Patient Date of Service: Jan 06, 2025 Billing Provider: KELLEE HAYDEN Common Visit Codes: [id number] INP/OBS CARE(HIGH) KELLEE HAYDEN Jan 06, 2025 17:24
[2025-01-06] MEDS: CARVEDILOL 3.125 MG TAB PO SCH (21:52)
[2025-01-06] MEDS: SACUBITRIL-VALSARTAN 24mg/26mg TAB PO SCH (21:54)
[2025-01-07] VITALS (7 sets, daily range): BP systolic 111–124; BP diastolic 56–73; PULSE 65–115; RESP 15–18; TEMP 98.1–99.1; O2SAT 98–100
[2025-01-07 06:35] LABS: Basophils # (auto) 0 10 ^3/uL (0-0.2); Basophils % (auto) 0.1 % (0.0-2.0); Eosinophils # (auto) 0 10 ^3/uL (0-0.8); Hematocrit 34.7 % (36.0-46.0); Hemoglobin 11.7 g/dL (12.2-16.2); Lymphocytes # (auto) 1.3 10 ^3/uL (0.4-5.4); Lymphocytes % (auto) 7.2 % (10.0-50.0); Mean Corpuscular Hemoglobin 29.5 pg (28.0-32.0); Mean Corpuscular Hgb Conc. 33.7 g/dL (32.0-36.0); Mean Corpuscular Volume 87.5 fL (80.0-100.0); Monocytes % (auto) 5.7 % (0.0-12.0); Platelet Count (auto) 259 10^3/uL (140-450); Red Blood Cells 3.97 10^6/uL (4.0-5.20); Red Cell Distribution Width 14.7 % (11.8-14.3); White Blood Cell 18.3 10^3/uL (4.4-10.8)
[2025-01-07 06:45] LABS: Anion Gap 9 (5-15); Carbon Dioxide 26 mmol/L (20-31); Chloride 100 mmol/L (98-107); Potassium 3.8 mmol/L (3.5-5.1)
[2025-01-07 06:46] LABS: Calcium 8.9 mg/dL (8.7-10.4)
[2025-01-07 06:51] LABS: Blood Urea Nitrogen 21 mg/dL (9-23)
[2025-01-07 06:54] LABS: Glucose 125 mg/dL (74-106); Sodium 135 mmol/L (136-145)
[2025-01-07] MEDS: EMPAGLIFLOZIN 10 MG TAB PO SCH (09:27)
--- NOTE | 2025-01-07 14:25 | DVHPN2 ---
Consult Progress Note Subjective Patient reports: Feels better Review of Systems: CVS:Normal (Denies CP, Palpitations), RESPIRATORY:Abnormal (breathing improving.) Objective vital signs Vital Sign Date Time Temp Pulse Resp B/P (MAP) Pulse Ox O2 Delivery O2 Flow Rate FiO2 01/07/25 09:28 115 124/73 01/07/25 09:00 98.3 15 100 98.3 01/06/25 20:00 Nasal Cannula* 2 28 Total Intake and Output 01/06/25 01/06/25 01/07/25 15:00 23:00 07:00 Intake Total 600 ml 450 ml Balance 600 ml 450 ml medications Current Medications Medications Dose Ordered Sig/Jamal Route Start Time Stop Time Status Last Admin Dose Admin Nitroglycerin 0.4 mg Q5MINP PRN SL 01/04/25 22:15 Ondansetron HCl 4 mg Q6HPRN PRN IV 01/04/25 22:15 01/06/25 10:09 4 MG Aspirin 81 mg DAILY PO 01/04/25 22:15 01/07/25 09:28 81 MG Atorvastatin Calcium 40 mg HS PO 01/05/25 22:00 01/06/25 21:58 40 MG Acetaminophen/ Hydrocodone Bitart 1 tab Q6HPRN PRN PO 01/04/25 22:15 01/06/25 05:34 1 TAB Acetaminophen 650 mg Q6HPRN PRN PO 01/04/25 22:15 01/05/25 20:51 650 MG Pantoprazole Sodium 40 mg DAILY IV 01/05/25 10:00 01/07/25 09:26 40 MG Furosemide 40 mg BID IV 01/05/25 10:00 01/07/25 09:28 40 MG Clopidogrel Bisulfate 75 mg DAILY PO 01/06/25 10:00 01/07/25 09:27 75 MG Carvedilol 3.125 mg Q12HR PO 01/06/25 22:00 01/07/25 09:28 3.125 MG Sacubitril/ Valsartan 1 tab BID PO 01/06/25 22:00 01/07/25 09:27 1 TAB Empaglifozin 10 mg DAILY PO 01/07/25 10:00 01/07/25 09:27 10 MG Examination: LUNGS:Abnormal (2L NC), CVS:Normal (Telemetry consistent with sinus tachycardia at 109 beats per minute.) laboratory and microbiology Laboratory Tests 01/07/25 05:53 Test 01/07/25 05:53 Range/Units Serum Glucose 125 H 74-106 mg/dL Problem List/Assessment/Plan Problem List/Assessment/Plan Problem List/Assessment/Plan Problem List/Assessment/Plan NSTEMI, status post PTCA x3 CLARA Severe coronary artery disease status post triple-vessel CABG (on ASA) Rule out structural heart disease Hypertension Dyslipidemia Obesity Plan/Recommendation (Dr. Lacy): Case discussed with Dr. Lacy. EF of 35% with global hypokinesis. S/p coronary angiogram with left heart catheterization on 01/05/2025 in which successful PTCA and stenting x 3 CLARA. Continue GDMT, dual antiplatelet therapy, and lipid-lowering agent. Consider MRA (spironolactone) with stable potassium. Back pain nausea has resolved. CT angio showing moderate right pleural effusion. Continue diuresis. Report did not mention anything about dissection, DC planning. Thank you for allowing us to care for this patient. Please call with any questions or concerns. Plan discussed with: Patient Date of Service: Jan 07, 2025 Billing Provider: MARINO CAMEJO Common Visit Codes: [id number] INP/OBS CARE(HIGH) MARINO CAMEJO Jan 07, 2025 14:25
[2025-01-07] MEDS ORDERED: ASPI-325 PO (16:12)
[2025-01-07] MEDS ORDERED: SACU1TAB PO (16:12)
[2025-01-07] MEDS ORDERED: EMPA1TAB PO (16:12)
--- NOTE | 2025-01-07 16:12 | DVHINCON2 ---
Date of service: Jan 07, 2025 Referring Physician Lo Nelson NP Reason for Consultation Acute respiratory failure History of Present Illness History Source: Patient Exam Limitations: No limitations HPI Patient is a 74-year old lady with a history of hypertension, diabetes and previous CABG who presented shortness of breath. Was seen in the emergency room where chest x-ray demonstrated right pleural effusions and pulmonary edema. Patient was started on IV diuretics and pulmonology was consulted in view of hypoxemia. Home Meds Active Scripts Sacubitril-Valsartan (Entresto 24-26 mg) 1 Tab Tab, 1 TAB PO BID for 60 Days, #120 TAB Prov:ARSLAN CARBAJAL MD 01/07/25 Empagliflozin (Jardiance) 10 Mg Tab, 10 MG PO DAILY for 60 Days, #60 TAB Prov:ARSLAN CARBAJAL MD 01/07/25 Aspirin (Aspirin Low Dose) 81 Mg Tab, 81 MG PO DAILY, #60 TAB Prov:ARSLAN CARBAJAL MD 01/07/25 Carvedilol (COREG) 3.125 Mg Tab, 3.125 MG OR BID for 120 Days, #240 TAB Prov:ARSLAN CARBAJAL MD 01/06/25 Clopidogrel Bisulfate (CLOPIDOGREL) 75 Mg Tab, 75 MG PO DAILY for 90 Days, #90 TAB Prov:ARSLAN CARBAJAL MD 01/06/25 Atorvastatin Calcium (ATORVASTATIN CALCIUM) 20 Mg Tab, 40 MG PO HS for 90 Days, #180 TAB Prov:ARSLAN ACRBAJAL MD 01/06/25 Reported Medications Folic Acid (Folic Acid) 1 Mg Tab, 1 MG PO DAILY, MG 05/13/24 Hydroxychloroquine Sulfate (PLAQUENIL) 200 Mg Tab, 1 TAB PO BID for RHEUMATOID ARTHRITIS, #180 TAB 3 Refills 05/13/24 Discontinued Reported Medications Aspirin (Aspir-Low) 81 Mg Tab, 81 MG PO DAILY for PREVENTATIVE, MG 05/13/24 Hctz (Hydrochlorothiazide) 25 Mg Tab, 12.5 MG PO for HTN/EDEMA, TAB 05/13/24 Atorvastatin Calcium (ATORVASTATIN CALCIUM) 20 Mg Tab, 1 TAB PO DAILY for HIGH CHOLESTEROL, #30 TAB 5 Refills 05/13/24 Past Medical History Cardiac: HTN Pulmonary: No pertinent Hx Central Nervous System: No pertinent Hx GI: No pertinent Hx Hemotology/Oncology: No pertinent Hx Hepatobiliary: No pertinent Hx Psychiatric: No pertinent Hx Musculoskeletal: No pertinent Hx Rheumotologic: No pertinent Hx Infectious Disease: No peritnent Hx ENT: No pertinent Hx Renal/: No pertinent Hx Endocrine: NIDDM Dermatology: No pertinent Hx Past Surgical History: CABG Family History: DM, Hypertension Patient Family History: Diabetes mellitus G8 MOTHER Hypertension G8 MOTHER Smoker: No Hx (Negative) Alocohol: None Drugs: None Lives with: With family Domestic Violence: Neg Review of Systems Constitutional: No symptom reported Ears, Nose, & Throat: No symptom reported Eyes: No symptom reported Pulmonary/Respiratory: Dyspnea Cardiovascular: No symptom reported Gastrointestinal: No symptom reported Genitourinary: No symptom reported Musculoskeletal: No symptom reported Skin: No symptom reported Psychiatric: No symptom reported Endocrine: No symptom reported Hemotologic/Lymphatic: No symptom reported H&P Exam Vital Signs Vital Signs Date Time Temp Pulse Resp B/P (MAP) Pulse Ox O2 Delivery O2 Flow Rate FiO2 01/07/25 13:00 98.2 93 15 114/56 (75) 98 98.2 01/06/25 20:00 Nasal Cannula* 2 28 General Appeara: Well developed, Well nourished, Normal Appearance Head Exam: Normal inspection Neck Exam: Normal inspection, Non-tender, Normal alignment Eye Exam: bilateral eye Normal inspection, bilateral eye PERRL, bilateral eye EOMI Ear Exam: bilateral ear Auricle normal, bilateral ear Canal normal, bilateral ear TM normal Nasal Exam: Normal inspection Mouth: Normal Inspection Pulmonary/Respiratory: Normal inspection, Normal breath sounds, Chest non- tender, Lungs clear Cardiovascular/Chest: Normal inspection, Regular rate, Normal Rhythm Peripheral Pulses: 4+ Radial (R), 4+ Radial (L), 4+ Brachial (R), 4+ Brachial (L) Abdominal Exam: Normal bowel sounds Labs/Xrays Labs Test 01/07/25 05:53 01/06/25 10:45 01/06/25 08:57 01/05/25 06:10 Range/Units White Blood Count 18.3 #H 4.4-10.8 10^3/uL Red Blood Count 3.97 L 4.0-5.20 10^6/uL Hemoglobin 11.7 L 12.2-16.2 g/dL Hematocrit 34.7 #L 36.0-46.0 % Mean Corpuscular Volume 87.5 80.0-100.0 fL Mean Corpuscular Hemoglobin 29.5 28.0-32.0 pg Mean Corpuscular Hemoglobin Concent 33.7 32.0-36.0 g/dL Red Cell Distribution Width 14.7 H 11.8-14.3 % Platelet Count 259 140-450 10^3/uL Mean Platelet Volume 8.3 6.9-10.8 fL Neutrophils (%) (Auto) 87.0 H 37.0-80.0 % Lymphocytes (%) (Auto) 7.2 L 10.0-50.0 % Monocytes (%) (Auto) 5.7 0.0-12.0 % Eosinophils (%) (Auto) 0.0 0.0-7.0 % Basophils (%) (Auto) 0.1 0.0-2.0 % Neutrophils # (Auto) 16.0 H 1.6-8.6 10 ^3/uL Lymphocytes # (Auto) 1.3 0.4-5.4 10 ^3/uL Monocytes # (Auto) 1.0 0-1.3 10 ^3/uL Eosinophils # (Auto) 0 0-0.8 10 ^3/uL Basophils # (Auto) 0 0-0.2 10 ^3/uL Nucleated Red Blood Cells 0.0 % Sodium Level 135 L 136-145 mmol/L Potassium Level 3.8 3.5-5.1 mmol/L Chloride Level 100 98-107 mmol/L Carbon Dioxide Level 26 20-31 mmol/L Anion Gap 9 5-15 Blood Urea Nitrogen 21 9-23 mg/dL Creatinine 1.31 #H 0.550-1.02 mg/dL Glomerular Filtration Rate Calc 42 >90 mL/min BUN/Creatinine Ratio 16.0 10.0-20.0 Serum Glucose 125 H 74-106 mg/dL Calcium Level 8.9 8.7-10.4 mg/dL Differential Total Cells Counted 100.0 100 Neutrophils % (Manual) 91 H 37.0-80.0 Band Neutrophils % (Manual) 0 Lymphocytes % (Manual) 5 L 10.0-50.0 Monocytes % (Manual) 4 0-12 Eosinophils % (Manual) 0 0-7 Basophils % (Manual) 0 0.0-2.0 Metamyelocytes % (manual) 0 Myelocytes % (Manual) 0 Promyelocytes % (Manual) 0 Blast Cells % (Manual) 0 Reactive Lymphocytes 0 Platelet Estimate Adequate Troponin I High Sensitivity > 83767 *H </=34 ng/L Prothrombin Time 11.4 9.3-11.8 sec Prothrombin Time INR 1.08 0.9-1.15 Activated Partial Thromboplast Time 28.0 24.5-34.5 SEC Magnesium Level 2.2 1.6-2.6 mg/dL Test 01/05/25 04:07 01/04/25 22:28 01/04/25 21:00 Range/Units Urine Color Light-yellow Yellow Urine Clarity Clear Clear Urine pH 5.5 5.0-9.0 Urine Specific [place] 1.006 1.001-1.035 Urine Protein Negative Negative Urine Ketones Negative Negative Urine Blood Negative Negative /uL Urine Nitrite Negative Negative Urine Bilirubin Negative Negative Urine Urobilinogen Normal Negative mg/dL Urine Leukocyte Esterase Negative Negative /uL Urine RBC 1 0 - 4 /hpf Urine Microscopic WBC 3 0-5 /HPF Urine Squamous Epithelial Cells Few <5 /hpf Urine Bacteria Mod H None Seen /hpf Urine Glucose Normal Normal mg/dL Lactic Acid Level 1.7 0.4-2.0 mmol/L Triglycerides Level 53 < 150 mg/dL Cholesterol Level 137 < 200 mg/dL LDL Cholesterol 64 < 100 mg/dL HDL Cholesterol 56 40-59 mg/dL B-Type Natriuretic Peptide 139.86 0-100 pg/mL Assessment/Plan Plan Impression Acute hypoxemic respiratory failure Right pleural effusions Pulmonary edema CHF Patient seen and examined Events Low oxygen requirements On 2 liters nasal cannula Vital signs stable Labs and imaging reviewed Chest x-ray shows small right pleural effusions, appears loculated Not amenable to thoracentesis Management Supplemental oxygen Titrate to maintain sats 90% or above Incentive spirometry Diurese Okay to withhold antibiotics in absence of fever and white count Bronchodilators as needed Monitor renal function Monitor electrolytes Supplement as needed Continue medical management DVT prophylaxis Plan discussed with: Patient HELIO MEREDITH MD Jan 07, 2025 16:12
--- NOTE | 2025-01-07 16:18 | DVHDS2 ---
Discharge Summary Date of Admission Jan 04, 2025 at 22:01 Date of Discharge: Jan 07, 2025 Labs/Diagnostic Data: Laboratory Results Test 01/07/25 05:53 01/06/25 10:45 01/06/25 08:57 01/05/25 06:10 White Blood Count 18.3 10^3/uL (4.4-10.8) Red Blood Count 3.97 10^6/uL (4.0-5.20) Hemoglobin 11.7 g/dL (12.2-16.2) Hematocrit 34.7 % (36.0-46.0) Mean Corpuscular Volume 87.5 fL (80.0-100.0) Mean Corpuscular Hemoglobin 29.5 pg (28.0-32.0) Mean Corpuscular Hemoglobin Concent 33.7 g/dL (32.0-36.0) Red Cell Distribution Width 14.7 % (11.8-14.3) Platelet Count 259 10^3/uL (140-450) Mean Platelet Volume 8.3 fL (6.9-10.8) Neutrophils (%) (Auto) 87.0 % (37.0-80.0) Lymphocytes (%) (Auto) 7.2 % (10.0-50.0) Monocytes (%) (Auto) 5.7 % (0.0-12.0) Eosinophils (%) (Auto) 0.0 % (0.0-7.0) Basophils (%) (Auto) 0.1 % (0.0-2.0) Neutrophils # (Auto) 16.0 10 ^3/uL (1.6-8.6) Lymphocytes # (Auto) 1.3 10 ^3/uL (0.4-5.4) Monocytes # (Auto) 1.0 10 ^3/uL (0-1.3) Eosinophils # (Auto) 0 10 ^3/uL (0-0.8) Basophils # (Auto) 0 10 ^3/uL (0-0.2) Nucleated Red Blood Cells 0.0 % Sodium Level 135 mmol/L (136-145) Potassium Level 3.8 mmol/L (3.5-5.1) Chloride Level 100 mmol/L (98-107) Carbon Dioxide Level 26 mmol/L (20-31) Anion Gap 9 (5-15) Blood Urea Nitrogen 21 mg/dL (9-23) Creatinine 1.31 mg/dL (0.550-1.02) Glomerular Filtration Rate Calc 42 mL/min (>90) BUN/Creatinine Ratio 16.0 (10.0-20.0) Serum Glucose 125 mg/dL (74-106) Calcium Level 8.9 mg/dL (8.7-10.4) Differential Total Cells Counted 100.0 (100) Neutrophils % (Manual) 91 (37.0-80.0) Band Neutrophils % (Manual) 0 Lymphocytes % (Manual) 5 (10.0-50.0) Monocytes % (Manual) 4 (0-12) Eosinophils % (Manual) 0 (0-7) Basophils % (Manual) 0 (0.0-2.0) Metamyelocytes % (manual) 0 Myelocytes % (Manual) 0 Promyelocytes % (Manual) 0 Blast Cells % (Manual) 0 Reactive Lymphocytes 0 Platelet Estimate Adequate Troponin I High Sensitivity > 30546 ng/L (</=34) Prothrombin Time 11.4 sec (9.3-11.8) Prothrombin Time INR 1.08 (0.9-1.15) Activated Partial Thromboplast Time 28.0 SEC (24.5-34.5) Magnesium Level 2.2 mg/dL (1.6-2.6) Test 01/05/25 04:07 01/04/25 22:28 01/04/25 21:00 Urine Color Light-yellow (Yellow) Urine Clarity Clear (Clear) Urine pH 5.5 (5.0-9.0) Urine Specific [place] 1.006 (1.001-1.035) Urine Protein Negative (Negative) Urine Ketones Negative (Negative) Urine Blood Negative /uL (Negative) Urine Nitrite Negative (Negative) Urine Bilirubin Negative (Negative) Urine Urobilinogen Normal mg/dL (Negative) Urine Leukocyte Esterase Negative /uL (Negative) Urine RBC 1 /hpf (0 - 4) Urine Microscopic WBC 3 /HPF (0-5) Urine Squamous Epithelial Cells Few /hpf (<5) Urine Bacteria Mod /hpf (None Seen) Urine Glucose Normal mg/dL (Normal) Lactic Acid Level 1.7 mmol/L (0.4-2.0) Triglycerides Level 53 mg/dL (< 150) Cholesterol Level 137 mg/dL (< 200) LDL Cholesterol 64 mg/dL (< 100) HDL Cholesterol 56 mg/dL (40-59) B-Type Natriuretic Peptide 139.86 pg/mL (0-100) Other Laboratory Tests 01/07/25 05:53 Brief Hx & Hospital Course: 74-year-old female with a known history of CAD status post three-vessel CABG presented to the hospital with shortness breath found to have STEMI. Patient was taken to pharmaceutical laboratory technician by cardiology. Patient underwent PCI to RCA with three stents. Postoperatively patient was in fairly. Patient was found to be seen with the finding of right-sided pleural effusion pulmonary was consulted. No indication for any thoracentesis. Patient was cleared to be discharged. Patient was recommended to return to ER if worsening shortness of breath or any concern of fever chills. Condition at Discharge: Stable Final Diagnosis/Problems List 74-year-old female with a known history of CAD status post three-vessel CABG presented to the hospital with shortness breath found to have 1. NSTEMI status post PCI to RCA with three stents 2. CAD status post three-vessel CABG 3. Leukocytosis likely reactive 4. Right-sided pleural effusion , outpatient follow up with pulmonary with a repeat chest x-ray Discharge Disposition: at Hospital SNF Discharge Will this Physician continue t: No Discharge Instruct/Medications Diet: Cardiac 2g Na,low cholest Activity: No Restrictions, As Tolerated Follow Up/Referral: Follow up with the PCP in one week Follow up with Cardiology in one week Follow up with Pulmonary with a repeat chest x-ray in 1-2 weeks make sure resolution of right-sided pleural effusions Medications: Resume medication as prescribed New Medications: Carvedilol (Coreg) 3.125 Mg Tab 3.125 MG OR BID for 120 Days, #240 TAB Aspirin (Aspirin Low Dose) 81 Mg Tab 81 MG PO DAILY, #60 TAB Atorvastatin Calcium (Atorvastatin Calcium) 20 Mg Tab 40 MG PO HS for 90 Days, #180 TAB Clopidogrel Bisulfate (Clopidogrel) 75 Mg Tab 75 MG PO DAILY for 90 Days, #90 TAB Empagliflozin (Jardiance) 10 Mg Tab 10 MG PO DAILY for 60 Days, #60 TAB Sacubitril-Valsartan (Entresto 24-26 mg) 1 Tab Tab 1 TAB PO BID for 60 Days, #120 TAB Continued Medications: Folic Acid (Folic Acid) 1 Mg Tab 1 MG PO DAILY, MG Hydroxychloroquine Sulfate (Plaquenil) 200 Mg Tab 1 TAB PO BID for RHEUMATOID ARTHRITIS, #180 TAB 3 Refills Discontinued Medications: Atorvastatin Calcium (Atorvastatin Calcium) 20 Mg Tab 1 TAB PO DAILY for HIGH CHOLESTEROL, #30 TAB 5 Refills Hctz (Hydrochlorothiazide) 25 Mg Tab 12.5 MG PO for HTN/EDEMA, TAB Discharge Statement: "Patient was advised to return to the ER or call 911 if any headaches, dizziness, shortness of breath, chest pain, abdominal pain, bleeding, fevers, or worsening of medical condition. Patient was counseled about treatment plan, medications, possible side effects, patientverbalized understanding. All questions were answered to the best of my ability. This discharge took greater then 30 minutes in planning, reviewing documentation, counseling the patient, and discussing with other team members." ASSESSMENT ASSESSMENT Assessment 74-year-old female with a known history of CAD status post three-vessel CABG presented to the hospital with shortness breath found to have 1. NSTEMI status post PCI to RCA with three stents 2. CAD status post three-vessel CABG 3. Leukocytosis likely reactive 4. Right-sided pleural effusion , outpatient follow up with pulmonary with a repeat chest x-ray Date of Service: Jan 07, 2025 Billing Provider: ARSLAN CARBAJAL MD Common Visit Codes: NOT BILLABLE ARSLAN CARBAJAL MD Jan 07, 2025 16:18
--- NOTE | 2025-01-07 23:20 | DVHPN2 ---
Consult Progress Note Subjective Patient reports: Feels better Other Systems: Patient was seen and evaluated in follow up. Patient has no new complaints at this time. Patient denies any cardiac symptoms. Patient is cardiac stable for discharge. Telemetry reviewed. Objective vital signs Vital Sign Date Time Temp Pulse Resp B/P (MAP) Pulse Ox O2 Delivery O2 Flow Rate FiO2 01/07/25 17:00 98.1 65 16 119/69 (86) 100 98.1 01/07/25 08:00 Nasal Cannula* 2 28 Total Intake and Output 01/06/25 01/06/25 01/07/25 15:00 23:00 07:00 Intake Total 600 ml 450 ml Balance 600 ml 450 ml Examination: GENERAL:Normal, HEENT:Normal, NECK:Normal, LUNGS:Normal, CVS:Normal, ABDOMEN:Normal, SKIN:Normal, NEURO:Normal laboratory and microbiology Laboratory Tests 01/07/25 05:53 Test 01/07/25 05:53 Range/Units Serum Glucose 125 H 74-106 mg/dL Problem List/Assessment/Plan Problem List/Assessment/Plan NSTEMI, status post PTCA x3 CLARA. Severe coronary artery disease status post triple-vessel CABG (on ASA). Rule out structural heart disease. Hypertension. Dyslipidemia. Obesity. Plan/Recommendation Continued all current supportive medical care. Patient has been seen by Taj Owusu NP on my behalf, him and I discussed the plan with the patient. EF of 35% with global hypokinesis. S/p coronary angiogram with left heart catheterization on 01/05/2025 in which successful PTCA and stenting x 3 CLARA. Continue GDMT, dual antiplatelet therapy, and lipid-lowering agent. Consider MRA (spironolactone) with stable potassium. Back pain nausea has resolved. CT angio showing moderate right pleural effusion. Continue diuresis. Additional plan as per the hospital course. Plan discussed with: Patient Date of Service: Jan 07, 2025 Billing Provider: ROBB JOHNSON MD Cardiology Common Codes: [id number](High ROBB JOHNSON MD Jan 07, 2025 22:10
--- NOTE | 2025-01-09 14:43 | ECG ---
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
== END 2025-01-07 18:30 | disposition home or self-care (01) | DRG 321 ==
LOC: ER 19:55 → OVERFLOW 22:01 → TELE-WESTW 01-05 17:00
PROVIDERS: ADMIT Nurse Practitioner Family; ATTEND Nurse Practitioner Family
PROC: 027136Z Dilation of Coronary Artery, Two Arteries with Three Drug-eluting Intraluminal Devices, Percutaneous Approach (ICD-10-PCS; principal; 2025-01-05)
PROC: B211YZZ Fluoroscopy of Multiple Coronary Arteries using Other Contrast (ICD-10-PCS; 2025-01-05)
PROC: B215YZZ Fluoroscopy of Left Heart using Other Contrast (ICD-10-PCS; 2025-01-05)
PROC: 4A023N7 Measurement of Cardiac Sampling and Pressure, Left Heart, Percutaneous Approach (ICD-10-PCS; 2025-01-05)
PROC: 4A033BC Measurement of Arterial Pressure, Coronary, Percutaneous Approach (ICD-10-PCS; 2025-01-05)
PROC: B218YZZ Fluoroscopy of Left Internal Mammary Bypass Graft using Other Contrast (ICD-10-PCS; 2025-01-05)
PROC: B21FYZZ Fluoroscopy of Other Bypass Graft using Other Contrast (ICD-10-PCS; 2025-01-05)
DX: I21.4 Non-ST elevation (NSTEMI) myocardial infarction (principal); I50.33 Acute on chronic diastolic (congestive) heart failure; J96.01 Acute respiratory failure with hypoxia; T82.857A Stenosis of other cardiac prosthetic devices, implants and grafts, initial encounter; D72.829 Elevated white blood cell count, unspecified; E11.9 Type 2 diabetes mellitus without complications; I11.0 Hypertensive heart disease with heart failure; E66.9 Obesity, unspecified; Y83.8 Other surgical procedures as the cause of abnormal reaction of the patient, or of later complication, without mention of misadventure at the time of the procedure; I25.10 Atherosclerotic heart disease of native coronary artery without angina pectoris; M25.512 Pain in left shoulder; Z90.710 Acquired absence of both cervix and uterus; Z95.1 Presence of aortocoronary bypass graft; Z79.899 Other long term (current) drug therapy; Z79.82 Long term (current) use of aspirin; Z79.1 Long term (current) use of non-steroidal anti-inflammatories (NSAID); Z79.891 Long term (current) use of opiate analgesic; Z79.84 Long term (current) use of oral hypoglycemic drugs; Z79.02 Long term (current) use of antithrombotics/antiplatelets; Z83.3 Family history of diabetes mellitus; Z82.49 Family history of ischemic heart disease and other diseases of the circulatory system; Z68.39 Body mass index [BMI] 39.0-39.9, adult; Y92.89 Other specified places as the place of occurrence of the external cause
CPT/HCPCS: 0523T; 92929; 92941; 93459; 99291; 36415; 71046; 71275; 80048; 80061; 81001; 83605; 83735; 83880; 84484; 85007; 85025; 85027; 85610; 85730; 93005; 93306; 99152; C1874; G0378; J2250; J2405; J2470; Q9967